=== PATIENT | female | born 1990 | race Two or more races ===

== ENCOUNTER 2023-05-09 08:36 | Emergency (ER) | payer OTHER ==
[~2023-05-09] VITALS: Ht 157.5 cm; Wt 49.9 kg
[2023-05-09 11:01] LABS: HEMOGLOBIN 12.8 g/dL (12.0-15.00); MEAN CELL VOLUME 86.8 fL (80.00-100.00); MEAN CORPUSCULAR HEMOGLOBIN 29.2 pg (27.00-32.0); MEAN CORPUSCULAR HGB CONC 33.6 g/dl (32.0-36.0); PLATELET COUNT 276 K/uL (150-450); RED BLOOD COUNT 4.38 M/uL (4.00-6.00)
== END 2023-05-09 12:31 | disposition home or self-care (01) ==
LOC: ER 08:37
DX: R06.9 Unspecified abnormalities of breathing (principal); Z20.822 Contact with and (suspected) exposure to COVID-19